=== PATIENT | male | born 1985 | race Two or more races ===

== ENCOUNTER 2017-12-16 09:37 | Emergency (ER) | payer SELFPAY ==
[2017-12-16] MEDS ORDERED: valACYclovir 1,000 MG Tab PO STA (11:23)
--- NOTE | 2017-12-16 11:30 | EDM.PDOC ---
ED HPI GENERAL MEDICAL PROBLEM - General Chief Complaint: Skin Complaint Stated Complaint: RASH ON FACE AND IN PRIVATES Time Seen by Provider: 12/16/17 11:20 Source of Information: Reports: Patient, Family, Supervisor Painting Department, RN Notes Reviewed History Limitations: Reports: Language Barrier - History of Present Illness INITIAL COMMENTS - FREE TEXT/NARRATIVE: H&P is limited secondary to language is [place] speaker we did use the interpretation service complaint is abdominal pain for the last 10 days pain comes and goes last a couple seconds and resolves denies any fevers nausea vomiting shortness of breath or chest pain - Related Data Allergies Allergy/AdvReac Type Severity Reaction Status Date / Time Penicillins Allergy Hives Verified 12/16/17 11:25 Home Meds: Home Meds NK [No Known Home Meds] 12/16/17 [History] Past Medical History - Past Health History Medical/Surgical History: Denies Medical/Surgical History Social & Family History - Tobacco Use Smoking Status *Q: Never Smoker ED ROS GENERAL - Review of Systems Review Of Systems: See Below Constitutional: Denies: Fever, Chills HEENT: Reports: No Symptoms Respiratory: Reports: No Symptoms Cardiovascular: Reports: No Symptoms GI/Abdominal: Reports: Abdominal Pain. Denies: Nausea, Vomiting : Reports: No Symptoms Skin: Reports: Rash ED EXAM, SKIN/RASH Exam: See Below Text/Narrative:: Examination of the integument system there is a large patch multiple vesicular midline he has vesicles as well as open ulcers penis had shaft rugate consistent with herpes genitalia Exam Limited By: No Limitations General Appearance: Alert, WD/WN, Mild Distress Respiratory/Chest: No Respiratory Distress Course - Orders/Labs/Meds Meds: Medications Discontinued Medications Generic Name Dose Route Start Last Admin Trade Name Zhanna PRN Reason Stop Dose Admin Valacyclovir HCl 1,000 mg 12/16/17 11:23 Valtrex PO 12/16/17 11:24 NOW STA Departure - Departure Time of Disposition: 11:28 Disposition: Home, Self-Care 01 Condition: Good Clinical Impression: Herpes genitalia Qualifiers: Herpes simplex infection site: penis Qualified Code(s): A60.01 - Herpesviral infection of penis - Discharge Information Referrals: PCP,None [Primary Care Provider] - Forms: ED Department Discharge, ED Return to Work/School Form Additional Instructions: Take full course of Valtrex, use hydrocodone as needed for pain control, Please followup with your primary care provider in 3-5 days if not better, please call return to the emergency department with worsening of symptoms. - Assessment/Plan Plan: Assessment Acuity = acute Site and laterality = herpes genitalia Etiology = probable herpes simplex type II Manifestations = pain Location of injury = Home Lab values = none Plan Treat with Valtrex 1 g by mouth twice a day 7 days hydrocodone 5/325 one tablet by mouth 3 times a day when necessary total #10 for pain control follow up with primary care in 5-7 days if not better This note was dictated using [employer] voice recognition software please call with any questions on syntax or grammar.
== END 2017-12-16 12:13 | disposition home or self-care (01) ==
LOC: JP.ED 09:37
DX: A60.01 Herpesviral infection of penis (principal); Z88.0 Allergy status to penicillin
CPT/HCPCS: 99284; A9270